=== PATIENT | female | born 2000 | race Caucasian/White ===

== ENCOUNTER 2024-06-24 15:51 | Emergency (ER) | payer MEDICAID ==
[~2024-06-24] VITALS: Ht 160 cm; Wt 82.0 kg
[2024-06-24 16:00] VITALS: O2SAT 100
[2024-06-24 16:03] VITALS: BP 116/70; PULSE 78; RESP 18; TEMP 98.3; O2SAT 100
[2024-06-24] MEDS ORDERED: OFLO5DRO4 EACH EAR (16:32)
== END 2024-06-24 17:40 | disposition home or self-care (01) ==
LOC: ER 15:51
DX: H60.93 Unspecified otitis externa, bilateral (principal)
CPT/HCPCS: 99283